=== PATIENT | female | born 1970 ===

== ENCOUNTER 2018-03-13 21:10 | Emergency (ER) | payer OTHER ==
[~2018-03-13] VITALS: Ht 162.6 cm; Wt 98.0 kg
[2018-03-13] MEDS ORDERED: HYZAAR 50-12.51 EACH PO (21:21)
== END 2018-03-13 22:33 | disposition home or self-care (01) ==
LOC: ER 21:10
DX: B34.9 Viral infection, unspecified (principal); J11.1 Influenza due to unidentified influenza virus with other respiratory manifestations

== ENCOUNTER 2018-11-03 18:09 | Emergency (ER) | payer OTHER ==
[~2018-11-03] VITALS: Ht 162.6 cm; Wt 105.2 kg
[~2018-11-03 18:09] MED LIST: HYZAAR 50-12.51 EACH PO
== END 2018-11-03 20:01 | disposition home or self-care (01) ==
LOC: ER 18:09
DX: N61.0 Mastitis without abscess (principal)